=== PATIENT | male | born 1960 | race Caucasian/White ===

== ENCOUNTER 2016-05-31 01:35 | Emergency (ER) | payer BC, OTHER ==
[2016-05-31 01:40] VITALS: BMI 28.0
[2016-05-31 02:17] LABS: BASOPHIL 0.7 % (0-2.0); EOSINOPHIL 6.2 % (0-4.5); MCH 31.7 pg (25.7-33.7); MCHC 35.2 g/dl (32.0-35.9); PLATELET COUNT 199 K/MM3 (134-434); RDW 13.3 % (11.9-15.9); WHITE BLOOD COUNT 7.2 K/mm3 (4.0-10.0)
--- NOTE | 2016-05-31 02:21 | PDOC ---
History of Present Illness - General History Source: Patient Exam Limitations: No Limitations - History of Present Illness Initial Comments: 05/31/16 03:09 The patient is a 55 year old male with past medical history of BPH who presents to the ED with complaints of chest pain for the past 2 hours. The patient states that after he left work, he began hula hooping when he felt a pain in his left pectoral region. It is 8/10 in severity, nonradiating and is a sharp cramping pain. He reports taking two aspirin and two tylenol for the pain. He denies any associated shortness of breath. He denies any fever, chills, nausea, vomiting, diarrhea, cough, or urinary symptoms. PCP: Dr. Steele <Vanessa Perez - Last Filed: 05/31/16 03:09> <Nicole Callahan - Last Filed: 06/01/16 06:34> - General Chief Complaint: Chest Pain Stated Complaint: CHEST PAIN Time Seen by Provider: 05/31/16 02:00 Past History <Vanessa Perez - Last Filed: 05/31/16 03:09> - Past Medical History Other medical history: BPH - Psycho/Social/Smoking Cessation Hx Suicidal Ideation: No Smoking History: Never smoked <Nicole Callahan - Last Filed: 06/01/16 06:34> - Past Medical History Allergies/Adverse Reactions: Allergies Allergy/AdvReac Type Severity Reaction Status Date / Time No Known Allergies Allergy Verified 05/31/16 01:40 Home Medications: Ambulatory Orders Dutasteride/Tamsulosin HCl [Sheila 0.5-0.4 mg Capsule] 1 each PO DAILY 05/31/16 Review of Systems - Review of Systems Able to Perform ROS?: Yes Comments:: 05/31/16 03:15 GENERAL/CONSTITUTIONAL: No fever or chills. No weakness. HEAD, EYES, EARS, NOSE AND THROAT: No change in vision. No ear pain or discharge. No sore throat. CARDIOVASCULAR: Present: chest pain No shortness of breath. RESPIRATORY: No cough, wheezing, or hemoptysis. GASTROINTESTINAL: No nausea, vomiting, diarrhea or constipation. GENITOURINARY: No dysuria, frequency, or change in urination. MUSCULOSKELETAL: No joint or muscle swelling or pain. No neck or back pain. SKIN: No rash NEUROLOGIC: No headache, vertigo, loss of consciousness, or change in strength/ sensation. ENDOCRINE: No increased thirst. No abnormal weight change. HEMATOLOGIC/LYMPHATIC: No anemia, easy bleeding, or history of blood clots. ALLERGIC/IMMUNOLOGIC: No hives or skin allergy. All Other Systems: Reviewed and Negative <Vanessa Perez - Last Filed: 05/31/16 03:09> *Physical Exam - Vital Signs Last Vital Signs Temp Pulse Resp BP Pulse Ox 97 F L 68 18 105/68 99 05/31/16 01:37 05/31/16 01:37 05/31/16 01:37 05/31/16 01:37 05/31/16 01:37 - Physical Exam Comments: 05/31/16 03:16 GENERAL: Awake, alert, and fully oriented, in no acute distress HEAD: No signs of trauma EYES: PERRLA, EOMI, sclera anicteric, conjunctiva clear ENT: Auricles normal inspection, hearing grossly normal, nares patent, oropharynx clear without exudates. Moist mucosa NECK: Normal ROM, supple, no lymphadenopathy, JVD, or masses LUNGS: Breath sounds equal, clear to auscultation bilaterally. No wheezes, and no crackles HEART: Regular rate and rhythm, normal S1 and S2, no murmurs, rubs or gallops ABDOMEN: Soft, nontender, normoactive bowel sounds. No guarding, no rebound. No masses EXTREMITIES: Normal range of motion, no edema. No clubbing or cyanosis. No cords, erythema, or tenderness NEUROLOGICAL: Cranial nerves II through XII grossly intact. Normal speech, normal gait SKIN: Warm, Dry, normal turgor, no rashes or lesions noted. <Vanessa Perez - Last Filed: 05/31/16 03:09> - Vital Signs Last Vital Signs Temp Pulse Resp BP Pulse Ox 97 F L 68 18 105/68 99 05/31/16 01:37 05/31/16 01:37 05/31/16 01:37 05/31/16 01:37 05/31/16 01:37 <Nicole Callahan - Last Filed: 06/01/16 06:34> ED Treatment Course - LABORATORY CBC & Chemistry Diagram: 05/31/16 02:00 05/31/16 02:00 - ADDITIONAL ORDERS Additional order review: Laboratory Results 05/31/16 05/31/16 02:00 02:00 INR 0.96 Sodium 141 Potassium 4.2 Chloride 106 Carbon Dioxide 26 Anion Gap 9 BUN 14 Creatinine 1.1 Creat Clearance w eGFR > 60 Random Glucose 124 H Calcium 8.4 L Total Bilirubin 0.2 AST 16 ALT 30 Alkaline Phosphatase 76 Creatine Kinase 134 Troponin I < 0.02 Total Protein 6.6 Albumin 3.5 05/31/16 02:00 RBC 4.08 MCV 90.0 MCHC 35.2 RDW 13.3 MPV 9.0 Neutrophils % 47.0 Lymphocytes % 36.9 Monocytes % 9.2 Eosinophils % 6.2 H Basophils % 0.7 <Vanessa Perez - Last Filed: 05/31/16 03:09> - LABORATORY CBC & Chemistry Diagram: 05/31/16 02:00 05/31/16 02:00 <Nicole Callahan - Last Filed: 06/01/16 06:34> Medical Decision Making - Medical Decision Making 06/01/16 06:31 Pt ate a huge cheese quesadilla and then a plate of kidney beans. He was hula- hooping with the nurses at his work and developed epigastric and right chest pain. This was gas. However, given his age he was worked up for cardiac enzymes, labs, cxr. Everything normal. He will follow with PMD. Healthier diet. <Nicole Callahan - Last Filed: 06/01/16 06:34> *DC/Admit/Observation/Transfer - Attestations Scribe Attestion: 05/31/16 03:16 Documentation prepared by Vanessa Perez, acting as medical research assistant for Nicole Callahan MD. <Vanessa Perez - Last Filed: 05/31/16 03:09> - Discharge Dispostion Admit: No <Nicole Callahan - Last Filed: 06/01/16 06:34> Diagnosis at time of Disposition: Atypical chest pain - Discharge Dispostion Disposition: HOME Condition at time of disposition: Stable - Referrals Referrals: Babar Steele [Primary Care Provider] - - Patient Instructions Printed Discharge Instructions: DI for Atypical Chest Pain
[2016-05-31 02:50] LABS: INR 0.96 (0.82-1.09); PROTHROMBIN TIME (PATIENT) 10.6 SEC (9.98-11.88)
[2016-05-31 03:01] LABS: ALBUMIN 3.5 g/dl (3.4-5.0); ANION GAP 9 (8-16); BILIRUBIN,TOTAL 0.2 mg/dL (0.2-1.0); CALCIUM 8.4 mg/dL (8.5-10.1); CO2 26 mmol/L (21-32); COCKROFT - GAULT 92.49; CREATININE 1.1 mg/dL (0.7-1.3); GLUCOSE,RANDOM 124 mg/dL (74-106); SGOT/AST 16 U/L (15-37); SGPT/ALT 30 U/L (12-78); TOT PROT 6.6 g/dl (6.4-8.2)
[2016-05-31 03:04] LABS: ALK PHOS 76 U/L (45-117); TROPONIN I < 0.02 ng/ml (0.00-0.05)
[2016-05-31 03:51] VITALS: BP 118/72; PULSE 69; TEMP 98.2
--- NOTE | 2016-05-31 17:17 | EKG ---
Test Reason : Blood Pressure : / mmHG Vent. Rate : 066 BPM Atrial Rate : 066 BPM P-R Int : 142 ms QRS Dur : 090 ms QT Int : 386 ms P-R-T Axes : 058 019 039 degrees QTc Int : 404 ms NORMAL SINUS RHYTHM ST ELEVATION, CONSIDER EARLY REPOLARIZATION BORDERLINE ECG NO PREVIOUS ECGS AVAILABLE Confirmed by LUIS EDUARDO ENAMORADO MD ([id number]) on 05/31/2016 5:16:57 PM Referred By: Confirmed By:LUIS EDUARDO ENAMORADO MD
== END 2016-05-31 03:54 | disposition home or self-care (01) ==
LOC: JER 01:35
DX: R07.89 Other chest pain (principal); N40.0 Benign prostatic hyperplasia without lower urinary tract symptoms
CPT/HCPCS: 36415; 71020-TC; 80053; 82550; 84484; 85025; 85610; 93005; 93010; 99284-25